=== PATIENT | male | born 1990 | race Caucasian/White ===

== ENCOUNTER 2018-01-28 13:12 | Outpatient (CLI) | payer OTHER ==
--- NOTE | 2018-01-28 14:14 | CT ---
CT HEAD NONCONTRAST DATE: 01/28/18 HISTORY: Headache. FINDINGS: No comparison. There is no evidence of acute intracranial hemorrhage or infarct. Cavum septum pellucidum is apparent at midline. There is no mass effect or shift of midline structures. Visualized paranasal sinuses rem ain well aerated. IMPRESSION: No acute intracranial abnormalities are demonstrated on noncontrast CT head. POS: [facility]
== END 2018-01-28 13:13 | disposition home or self-care (01) ==
LOC: SCSCT 13:12
PROVIDERS: ATTEND Family Medicine
DX: G44.52 New daily persistent headache (NDPH) (principal)
CPT/HCPCS: 70450

== ENCOUNTER 2020-05-07 13:58 | Outpatient (CLI) | payer BC ==
--- NOTE | 2020-05-07 14:51 | RAD ---
CERVICAL SPINE: 05/07/20 Total of seven views. INDICATIONS: Cervical spine pain. Cervical vertebrae maintain height. In the neutral position, there is slight anterolisthesis at C2-3. This appears to exacerbate slightly with flexion. Mild loss of disc space height at C3-4 and C4-5. N o significant spurring. Alignment is otherwise preserved. IMPRESSION: Slight anterolisthesis of at C2-3 which exacerbates slightly with flexion. Mild loss of disc space at C3-4 and C4-5. POS: [facility]
== END 2020-05-07 13:59 | disposition home or self-care (01) ==
LOC: SCSRAD 13:58
PROVIDERS: ATTEND Family Medicine
DX: M54.2 Cervicalgia (principal); M43.12 Spondylolisthesis, cervical region
CPT/HCPCS: 72052